=== PATIENT | male | born 1950 | race African-American/Black ===

== ENCOUNTER 2016-11-13 19:45 | Inpatient (IN) | payer MEDICAID ==
[~2016-11-13] VITALS: Ht 185.4 cm; Wt 73.9 kg
[2016-11-13] MEDS ORDERED: SODIUM CHLORIDE 0.9% 1,000 ML IV ONE (23:00)
[2016-11-13 23:23] LABS: CHLORIDE 99 mEq/L (98-107)
[2016-11-13 23:26] LABS: BASOPHILS % 1.2 % (0.0-2.0); HEMATOCRIT. 43.8 % (42.0-52.0); LYMPHOCYTES % 13.9 % (20.0-50.0); MEAN PLATELET VOLUME 8.5 fl (7.4-10.4); NEUTROPHILS % 74.9 % (40.0-76.0); PLATELET 222 x1000/uL (130-400); RED BLOOD CELL COUNT 5.15 mill/uL (4.7-6.1); RED CELL DISTRIBUTION WIDTH 13.2 % (11.6-14.6)
[2016-11-13 23:28] LABS: CARBON DIOXIDE 29 mEq/L (21-32)
[2016-11-13 23:29] LABS: INR 1.2; PARTIAL THROMBOPLASTIN TIME 28.2 sec (24.0-34.0); PROTHROMBIN TIME 12.5 sec
[2016-11-14 00:21] LABS: MEAN CORPUSCULAR HEMOGLOBIN 30.6 pg (28.0-32.0)
[2016-11-14] MEDS ORDERED: NIFEDIPINE 10MG CAPSULE PO ONE (02:15)
[2016-11-14] MEDS ORDERED: CLONIDINE 0.1MG TABLET PO PRN (05:45)
[2016-11-14] MEDS ORDERED: HYDRALAZINE 20MG/ML VIAL IV PRN ×2 (09:26→11:45)
[2016-11-14] MEDS ORDERED: HYDROCODONE/ACETAMINOPHEN 5/325MG TABLET PO PRN (11:15)
[2016-11-14] MEDS ORDERED: ACETAMINOPHEN 325MG TABLET PO PRN (11:15)
[2016-11-14] MEDS ORDERED: ONDANSETRON HCL 4MG/2ML VIAL IV PRN (11:15)
[2016-11-14] MEDS ORDERED: IPRATROPIUM/ALBUTEROL 0.5-3(2.5)MG/3ML NEB INH PRN (11:15)
[2016-11-14] MEDS ORDERED: DIPHENHYDRAMINE 50MG/ML VIAL IV PRN (11:15)
[2016-11-14 11:30] VITALS: BP 162/120
[2016-11-14 12:00] VITALS: BP 162/120
[2016-11-14] MEDS ORDERED: AMLODIPINE 10MG TABLET PO SCH (12:00)
[2016-11-14] MEDS: CLONIDINE 0.1MG TABLET PO PRN (13:54)
[2016-11-14 16:00] VITALS: BP 166/115
[2016-11-14 17:44] LABS: TROPONIN I 0.06 ng/mL (0.00-0.04)
[2016-11-14 20:00] VITALS: BP 141/100
[2016-11-14] MEDS: METOPROLOL TARTRATE 50MG TABLET PO SCH (21:00)
[2016-11-14] MEDS ORDERED: PNEUMOCOCCAL 23-VAL P-SAC VAC 0.5 ML IM ONE (21:30)
[2016-11-14] MEDS: AMLODIPINE 5MG TABLET PO SCH (21:51)
[2016-11-14] MEDS: DOXAZOSIN MESYLATE 2MG TABLET PO SCH (21:51)
[2016-11-14 23:07] LABS: BASOPHILS % 0.5 % (0.0-2.0); EOSINOPHILS % 0.5 % (0.0-5.0); HEMATOCRIT. 44.8 % (42.0-52.0); HEMOGLOBIN. 16.2 g/dL (14.0-18.0); MEAN CORPUSCULAR HEMOGLOBIN 30.8 pg (28.0-32.0); MEAN CORPUSCULAR VOLUME 85.1 fL (80.0-94.0); MEAN PLATELET VOLUME 8.9 fl (7.4-10.4); MONOCYTES % 5.8 % (2.0-8.0); NEUTROPHILS % 83.2 % (40.0-76.0); PLATELET 242 x1000/uL (130-400); RED BLOOD CELL COUNT 5.27 mill/uL (4.7-6.1); RED CELL DISTRIBUTION WIDTH 13.6 % (11.6-14.6)
[2016-11-15] VITALS: BP 120/95
[2016-11-15 04:00] VITALS: BP 157/107
[2016-11-15] MEDS: CLONIDINE 0.1MG TABLET PO PRN (05:05)
[2016-11-15 07:17] LABS: BASOPHILS % 0.6 % (0.0-2.0); EOSINOPHILS % 0.9 % (0.0-5.0); HEMATOCRIT. 42.5 % (42.0-52.0); HEMOGLOBIN. 14.8 g/dL (14.0-18.0); LYMPHOCYTES % 15.1 % (20.0-50.0); MEAN CORPUSCULAR HEMOGLOBIN 30.3 pg (28.0-32.0); MEAN CORPUSCULAR VOLUME 86.8 fL (80.0-94.0); MEAN PLATELET VOLUME 8.8 fl (7.4-10.4); MONOCYTES % 10.9 % (2.0-8.0); NEUTROPHILS % 72.5 % (40.0-76.0); PLATELET 201 x1000/uL (130-400); RED CELL DISTRIBUTION WIDTH 13.3 % (11.6-14.6)
[2016-11-15 08:00] VITALS: BP 146/114
[2016-11-15] MEDS: METOPROLOL TARTRATE 50MG TABLET PO SCH (08:23)
[2016-11-15] MEDS: AMLODIPINE 5MG TABLET PO SCH ×2 (08:27→21:13)
[2016-11-15 12:00] VITALS: BP 160/100
[2016-11-15] MEDS: LOSARTAN POTASSIUM 100 MG TABLET PO SCH (13:30)
[2016-11-15 14:38] LABS: CLARITY URINE CLEAR (CLEAR); COLOR URINE YELLOW (YELLOW); GLUCOSE URINE NEGATIVE (NEGATIVE); KETONES URINE NEGATIVE (NEGATIVE); LEUKOCYTE ESTERASE URINE NEGATIVE (NEGATIVE); NITRITE URINE NEGATIVE (NEGATIVE); OCCULT BLOOD URINE NEGATIVE (NEGATIVE); PH URINE 5.5 (4.5-8.0); PROTEIN URINE 4+ (NEGATIVE); UROBILINOGEN URINE 0.2 E.U./dL (0.2-1.0)
[2016-11-15 15:04] LABS: *AMPHETAMINES SCREEN URINE NEGATIVE (NEGATIVE); *BARBITURATES SCREEN URINE NEGATIVE (NEGATIVE); *BENZODIAZEPINES SCREEN URINE NEGATIVE (NEGATIVE); *COCAINE SCREEN URINE NEGATIVE (NEGATIVE); CANNABINOID URINE SCREEN PRESUMTIVE POSITIVE (NEGATIVE); METHADONE URINE SCREEN NEGATIVE (NEGATIVE); OPIATES URINE SCREEN PRESUMTIVE POSITIVE (NEGATIVE); PHENCYCLIDINE URINE SCREEN NEGATIVE (NEGATIVE)
[2016-11-15 16:00] VITALS: BP 136/90
[2016-11-15 20:00] VITALS: BP 124/80
[2016-11-15] MEDS: DOXAZOSIN MESYLATE 2MG TABLET PO SCH (21:12)
[2016-11-15] MEDS ORDERED: CLONIDINE 0.1MG TABLET PO SCH (22:00)
[2016-11-16] VITALS: BP 136/111
[2016-11-16 04:00] VITALS: BP 140/107
[2016-11-16] MEDS: CLONIDINE 0.1MG TABLET PO PRN (05:21)
[2016-11-16 08:00] VITALS: BP 132/107
[2016-11-16] MEDS: LOSARTAN POTASSIUM 100 MG TABLET PO SCH (09:00)
[2016-11-16] MEDS: AMLODIPINE 5MG TABLET PO SCH (09:00)
[2016-11-16 11:22] VITALS: BP 130/90
[2016-11-16 12:00] VITALS: BP 121/96
== END 2016-11-16 13:00 | disposition home or self-care (01) | DRG 468 ==
LOC: ER 22:55 → 7WST 11-14 00:56 → EDBEDREQ 11-14 01:20 → ENRESERV 11-14 07:23 → 7WST 11-14 14:13
PROVIDERS: ADMIT Internal Medicine; ATTEND Internal Medicine
DX: I12.9 Hypertensive chronic kidney disease with stage 1 through stage 4 chronic kidney disease, or unspecified chronic kidney disease (principal); N17.9 Acute kidney failure, unspecified; R65.10 Systemic inflammatory response syndrome (SIRS) of non-infectious origin without acute organ dysfunction; K92.2 Gastrointestinal hemorrhage, unspecified; N18.9 Chronic kidney disease, unspecified; B19.20 Unspecified viral hepatitis C without hepatic coma; R63.4 Abnormal weight loss; F12.90 Cannabis use, unspecified, uncomplicated; Z80.0 Family history of malignant neoplasm of digestive organs; Z90.49 Acquired absence of other specified parts of digestive tract; Z91.19 Patient's noncompliance with other medical treatment and regimen; Z68.21 Body mass index [BMI] 21.0-21.9, adult
CPT/HCPCS: 36415; 74176; 76770; 80048; 80053; 80061; 80305; 81001; 82270; 84484; 85025; 85610; 85730; 86850; 86900; 87040; 87086; 90732; 96361; 96374; 99285; A6261; J0360; J1200; J2405; J7030